=== PATIENT | male | born 1985 | race Two or more races ===

== ENCOUNTER 2023-10-22 19:07 | Emergency (ER) | payer MEDICAID ==
[~2023-10-22] VITALS: Ht 177.8 cm; Wt 84.1 kg
[2023-10-22 19:15] VITALS: BP 127/61; PULSE 51; RESP 16; TEMP 98.6
[2023-10-22] MEDS ORDERED: ALBU18HF12 IH (20:09)
[2023-10-22] MEDS ORDERED: PRED-554 PO (20:11)
[2023-10-22] MEDS ORDERED: ALBUTEROL SULFATE HFA 90 MCG/PUFF 8 GM INHALER IH ONE (20:15)
== END 2023-10-22 20:30 | disposition home or self-care (01) ==
LOC: EMS 19:13
DX: J45.909 Unspecified asthma, uncomplicated (principal); Z76.0 Encounter for issue of repeat prescription
CPT/HCPCS: 99283; 94640; J3535